=== PATIENT | female | born 1935 | race Caucasian/White ===

== ENCOUNTER → 2017-06-27 | Outpatient (CLI) | payer MEDICARE ==
[~2017-06-27] MED LIST: ACCUNEB SO1.25 MG/1 INH; AKWA TEARS EYE15 ML; ASPIRIN EC81 M1 PO; ATORVASTATIN CA40 MG PO; BACTROBAN CREAM30 G1 TOP; BUMETANIDE 1 MG1 M1 PO; BUMETANIDE0.25 MG/1 PO; CARDIZEM CD120 MG PO; CENTRUM CHEWAB1 EACH PO; CENTRUM SILVER1 EAC4 PO; CIPRO500 MG/5 M PO; COMBIVENT INH; COUMADIN 2 MG TA2 M1 PO; COUMADIN 5 MG TA5 M1 PO; DILTIAZEM 24HR240 M1 PO; DOXYCYCLINE 10100 MG PO; FERROUS SULFAT325 M1 PO; FIBER SUPPLEME283 GM; FIBER0.52 G1 PO; GLYCOLAX POWDER17 GM PO; HYDROCODONE-AP1 EAC6 PO; IBUPROFEN 400400 M2 PO; K-DUR 20 MEQ T20 MEQ PO; LASIX 40 MG TAB40 M2 PO; LASIX 80 MG TAB80 MG PO; LEVALBUTER1.25 MG/0. IH; LISINOPRIL10 MG PO; LISINOPRIL2.5 MG PO; LISINOPRIL40 MG PO; LOPRESSOR 50 MG50 M1 PO; LOPRESSOR100 MG PO; MAG-OX 400 TAB400 M1 PO; MAG-OXIDE400 MG PO; METFORMIN HCL500 M2 PO; MOM PO; MUCINEX TA600 MG/TA2 PO; NOVOLOG100 UNIT/1; PACERONE 200 M200 MG PO; PAIN RELIEF PM1 EAC2 PO; PEG OINTMENT B454 GM PO; PERCOCET PO; POTASSIUM20 PO; PREDNISONE 20 M20 M1 PO; PROTONIX40 M2 PO; RYTHMOL 150MG150 M1 PO; SENNA PO; SIMVASTATIN40 MG PO; SORINE 80 MG TA80 M1 PO; SYMBICORT160 MCG/4. INH; TOPROL XL100 MG PO; TYLENOL EX-STR500 M2 PO; TYLENOL PM; XOPENEX HF1 UDINHALE INH
[2017-06-27 12:44] LABS: HEMATOCRIT 30.6 % (37.0-47.0); HEMOGLOBIN 9.7 gm/dL (12.0-15.0); MCH 26.5 pg (26.0-34.0); MCHC 31.7 g/dL (28.0-37.0); MCV 83.7 fL (80.0-100.0); MPV 7.8 fl. (7.2-11.1); RBC 3.65 mil/uL (4.20-5.00); WBC 4.3 thou/uL (4.0-11.0)
[2017-06-27 13:02] LABS: ALBUMIN 2.8 g/dL (3.4-5.0); CREATININE 1.2 mg/dL (0.6-1.3); MAGNESIUM 2.1 mg/dL (1.8-2.4); POTASSIUM 4.4 mmol/L (3.5-5.1); TOTAL BILIRUBIN 1.1 mg/dL (<0.1-1.0); TOTAL PROTEIN 6.9 g/dL (6.4-8.2)
--- NOTE | 2017-06-27 16:14 | 2DMMODE ---
[place] [address] 2 D/M-MODE ECHOCARDIOGRAM Name: KEN QUINTANILLA Room: [facility]#: [id number] Admission: 06/27/17 Attend Phys: Ike Acosta, Discharge: Date of : 37 Date of Service: 06/27/17 1614 Report #: [id number] THIS REPORT FOR: //name// APPROVED REPORT Study performed: 06/27/2017 14:53:19 EXAM: Comprehensive 2D, Doppler, and color-flow Echocardiogram Patient Location: Out-Patient Status: routine BSA: 2.01 HR: 72 bpm BP: 154/70 mmHg Other Information Study Quality: Good Indications Aortic Valve Disease Congestive Heart Failure Aortic valve replacement 2D Dimensions LVEF(%): 79.86 (>50%) IVSd: 12.66 (7-11mm) LVOT Diam: 20.14 (18-24mm) LVDd: 49.49 mm PWd: 12.01 (7-11mm) Ascending Ao: 34.54 (22-36mm) LVDs: 25.42 (25-40mm) Aortic Root: 22.42 mm Costello's LVEF: 79.86 % Volumes Left Atrial Volume (Systole) LA ESV Index: 34.40 mL/m2 Aortic Valve AoV Peak Erasmo.: 3.38 m/s AO Peak Gr.: 45.68 mmHg LVOT Max P.23 mmHg AO Mean Gr.: 26.53 mmHg LVOT Mean P.08 mmHg LVOT Max V: 1.03 m/s AO V2 VTI: 77.22 cm LVOT Mean V: 0.66 m/s SHIKHA (VTI): 1.18 cm2 LVOT V1 VTI: 28.57 [place] [address] 2 D/M-MODE ECHOCARDIOGRAM Name: KEN QUINTANILLA Room: [facility]#: [id number] Admission: 06/27/17 Attend Phys: Ike Acosta, Discharge: Date of : 37 Date of Service: 06/27/17 1614 Report #: [id number] MV Peak Gr.: 11.71 mmHg MV Mean Gr.: 4.48 mmHg E/A Ratio: 5.41 MV Decel. Time: 223.77 ms MV E Max Erasmo.: 1.62 m/s MV PHT: 64.89 ms MVA (PHT): 3.39 cm2 TDI E/Lateral E': 23.14 E/Medial E': 27.00 Medial E' Erasmo.: 0.06 m/s Lateral E' Erasmo.: 0.07 m/s Pulmonary Valve PV Peak Erasmo.: 1.64 m/s PV Peak Gr.: 10.73 mmHg Tricuspid Valve TR Peak Gr.: 70.71 mmHg RVSP: 75.71 mmHg Left Ventricle The left ventricle is normal size. There is normal LV segmental wall motion. Mild concentric left ventricular hypertrophy. Left ventricular systolic function is normal. LVEF is 65-70%. This study is not technically sufficient to allow evaluation of the LV diastolic function. Right Ventricle The right ventricle is normal size. The right ventricular systolic function is normal. Atria Left atrium is moderately dilated. Right atrium is moderately dilated. Aortic Valve Bioprosthetic aortic valve is present. Trace aortic regurgitation. There is no aortic valvular stenosis. Mitral Valve There is moderate mitral annular calcification. Moderate mitral regurgitation. Mild mitral stenosis. Tricuspid Valve The tricuspid valve is normal in structure. Moderate tricuspid regurgitation. The RVSP is __75.7 mmHg[place] [address] 2 D/M-MODE ECHOCARDIOGRAM Name: QUINTANILLAKEN ARCE Room: [facility]#: [id number] Admission: 06/27/17 Attend Phys: Ike Acosta, Discharge: Date of : 37 Date of Service: 06/27/17 1614 Report #: [id number] The pulmonary valve is normal in structure. Trace pulmonic regurgitation. Great Vessels The aortic root is normal in size. IVC is dilated and collapses <50% with inspiration. Pericardium There is no pericardial effusion. <Conclusion> The left ventricle is normal size. Mild concentric left ventricular hypertrophy. Left ventricular systolic function is normal. LVEF is 65-70%. Left atrium is moderately dilated. Right atrium is moderately dilated. Bioprosthetic aortic valve is present. Trace aortic regurgitation. Moderate mitral regurgitation. Mild mitral stenosis. Moderate tricuspid regurgitation. The RVSP is __75.7 mmHg. <ELECTRONICALLY SIGNED> By: Darian Alejandra MD, FACC 06/27/17 1614 1614 1614 Darian Alejandra MD, FACC /INF
== END ==
LOC: M.CRD 12:13
PROVIDERS: Internal Medicine
DX: I08.1 Rheumatic disorders of both mitral and tricuspid valves (principal); I50.32 Chronic diastolic (congestive) heart failure; Z95.2 Presence of prosthetic heart valve